=== PATIENT | male | born 1980 | race Caucasian/White ===

== ENCOUNTER 2020-02-03 07:21 | Inpatient (IN) | payer BC ==
--- NOTE | 2020-02-03 07:48 | EDM.PDOC ---
ED HPI GENERAL MEDICAL PROBLEM - General Chief Complaint: Lower Extremity Injury/Pain Stated Complaint: RT. LEG HURTS Time Seen by Provider: 02/03/20 07:22 Source of Information: Reports: Patient History Limitations: Reports: No Limitations - History of Present Illness INITIAL COMMENTS - FREE TEXT/NARRATIVE: PMHx HTN, DM2 presents for concern for RLE infection. Was told he had an infected foot 20 days ago and started on keflex. He's finished the keflex but has noted for last 10 days worsening swelling/pain in R ankle tracking up from the foot. No warmth/redness. No calf pain. No SOB/CP. No fevers. No N/V. Onset: Today Right Lower Leg Pain Score (Numeric/FACES): 10 - Related Data Allergies Allergy/AdvReac Type Severity Reaction Status Date / Time No Known Allergies Allergy Verified 02/03/20 07:43 Home Meds: Home Meds glipiZIDE [Glucotrol XL] 2.5 mg PO DAILY 02/03/20 [History] lisinopriL [Lisinopril] 5 mg PO ASDIRECTED 02/03/20 [History] metFORMIN [Glucophage XR] 500 mg PO BIDMEALS 02/03/20 [History] Review of Systems - Review of Systems Review Of Systems: Comprehensive ROS is negative, except as noted in HPI. ED EXAM, GENERAL - Physical Exam Exam: See Below Exam Limited By: No Limitations General Appearance: Alert, WD/WN, No Apparent Distress Head: Atraumatic, Normocephalic Neck: Normal Inspection Respiratory/Chest: No Respiratory Distress, Lungs Clear, Normal Breath Sounds, No Accessory Muscle Use Cardiovascular: Normal Peripheral Pulses, Regular Rate, Rhythm, No Edema Peripheral Pulses: 1+: Dorsalis Pedis (L), Dorsalis Pedis (R) Extremities: Other (swelling of R ankle with TTP, no redness/warmth, swollen R great toe w/ erythema, healing wound R great toe, negative Willie's R sided, ch ronic venous stasis changes) Neurological: Alert, Oriented Psychiatric: Normal Affect, Normal Mood Skin Exam: Warm, Dry, Intact Course - Vital Signs Last Recorded V/S: Last Vital Signs Temp 96.7 F L 02/03/20 07:39 Pulse 76 02/03/20 07:39 Resp 18 02/03/20 07:39 BP 130/94 H 02/03/20 07:39 Pulse Ox 93 L 02/03/20 07:39 - Orders/Labs/Meds Orders: Active Orders 24 hr Category Date Time Status Patient Status [ADT] Routine ADT 02/03/20 08:56 Ordered Ankle 2V Rt [CR] Stat Exams 02/03/20 08:56 Ordered CULTURE BLOOD [BC] Stat Lab 02/03/20 07:59 Received CULTURE BLOOD [BC] Stat Lab 02/03/20 08:20 Received Blood Culture x2 Reflex Set [OM.PC] Stat Oth 02/03/20 07:49 Ordered Labs: Laboratory Tests 02/03/20 02/03/20 02/03/20 Range/Units 07:59 07:59 07:59 WBC 10.33 (4.0-11.0) K/uL RBC 5.17 (4.50-5.90) M/uL Hgb 13.4 (13.0-17.0) g/dL Hct 42.5 (38.0-50.0) % MCV 82.2 (80.0-98.0) fL MCH 25.9 L (27.0-32.0) pg MCHC 31.5 (31.0-37.0) g/dL RDW Std Deviation 45.3 (28.0-62.0) fl RDW Coeff of Shoaib 15 (11.0-15.0) % Plt Count 233 (150-400) K/uL MPV 10.40 (7.40-12.00) fL Neut % (Auto) 63.6 (48.0-80.0) % Lymph % (Auto) 24.6 (16.0-40.0) % [place] % (Auto) 8.6 (0.0-15.0) % Eos % (Auto) 2.9 (0.0-7.0) % Baso % (Auto) 0.3 (0.0-1.5) % Neut # (Auto) 6.6 H (1.4-5.7) K/uL Lymph # (Auto) 2.5 H (0.6-2.4) K/uL [place] # (Auto) 0.9 H (0.0-0.8) K/uL Eos # (Auto) 0.3 (0.0-0.7) K/uL Baso # (Auto) 0.0 (0.0-0.1) K/uL ESR 4 (0-14) mm/hr Sodium 136 (136-148) mmol/L Potassium 4.6 (3.5-5.1) mmol/L Chloride 100 (98-107) mmol/L Carbon Dioxide 27.6 (21.0-32.0) mmol/L BUN 16 (7.0-18.0) mg/dL Creatinine 0.9 (0.8-1.3) mg/dL Est Cr Clr Drug Dosing 97.47 mL/min Estimated GFR (MDRD) > 60.0 ml/min Glucose 138 H (74-106) mg/dL Calcium 9.0 (8.5-10.1) mg/dL C-Reactive Protein 7.60 H (0.00-0.90) mg/dL Meds: Medications Discontinued Medications Generic Name Dose Route Start Last Admin Trade Name Freq PRN Reason Stop Dose Admin Clindamycin Phosphate 600 mg/ 54 mls @ 100 mls/hr 02/03/20 07:42 02/03/20 07:58 Sodium Chloride IV 02/03/20 08:14 Not Given ONETIME ONE Clindamycin Phosphate Confirm 02/03/20 07:52 02/03/20 07:59 Cleocin In D5w Administered 02/03/20 07:53 Not Given Dose 50 mls @ as directed .ROUTE .STK-MED ONE Clindamycin Phosphate 600 mg/ 50 mls @ 100 mls/hr 02/03/20 07:59 02/03/20 08:02 Premix IV 02/03/20 08:28 100 mls/hr ONETIME ONE Administration Oxycodone/Acetaminophen 1 tab 02/03/20 08:51 Percocet 325-10 Mg PO 02/03/20 08:52 ONETIME ONE - Re-Assessments/Exams Free Text/Narrative Re-Assessment/Exam: 02/03/20 07:47 Will get basic labs, will give 1x dose IV clindamycin 600mg, will employ shared decision making for admit vs d/c with different antibiotic and PMD f/u as patient is without signs or symptoms of systemic toxicity. Low suspicion DVT. Very low suspicion necrotizing fascitis in setting of reassuring history and benign physical exam. Free Text/Narrative Re-Assessment/Exam: 02/03/20 08:57 Labs w/ WBC 10, elevated CRP. Blood cultures drawn. Will admit for failed outpatient cellulitis. Dr. Cox agrees to admit to his service. XR ordered to r/o soft tissue gas, low suspicion necrotizing fascitis. Departure - Departure Time of Disposition: 08:58 Disposition: Admitted As Inpatient 64 Condition: Good Clinical Impression: Cellulitis and abscess of foot - Discharge Information Referrals: PCP,None [Primary Care Provider] - Forms: ED Department Discharge Sepsis Event Note (ED) - Evaluation Sepsis Screening Result: No Definite Risk - Focused Exam Vital Signs: Vital Signs Temp Pulse Resp BP Pulse Ox 02/03/20 07:39 96.7 F L 76 18 130/94 H 93 L - My Orders Last 24 Hours: My Active Orders 02/03/20 07:49 Blood Culture x2 Reflex Set [OM.PC] Stat 02/03/20 07:59 CULTURE BLOOD [BC] Stat 02/03/20 08:20 CULTURE BLOOD [BC] Stat 02/03/20 08:56 Patient Status [ADT] Routine Ankle 2V Rt [CR] Stat - Assessment/Plan Last 24 Hours: My Active Orders 02/03/20 07:49 Blood Culture x2 Reflex Set [OM.PC] Stat 02/03/20 07:59 CULTURE BLOOD [BC] Stat 02/03/20 08:20 CULTURE BLOOD [BC] Stat 02/03/20 08:56 Patient Status [ADT] Routine Ankle 2V Rt [CR] Stat
[2020-02-03] MEDS ORDERED: Clindamycin Phosphate in D5W 50 ML ONE (07:52)
[2020-02-03] MEDS ORDERED: Clindamycin Phosphate in D5W 600 MG in Premix Bag 1 BAG IV ONE ×2 (07:59)
[2020-02-03 08:34] LABS: BLOOD UREA NITROGEN,BUN 16 mg/dL (7.0-18.0); CARBON DIOXIDE,CO2 27.6 mmol/L (21.0-32.0); CHLORIDE,CL 100 mmol/L (98-107); GLUCOSE RANDOM 138 mg/dL (74-106); POTASSIUM,K 4.6 mmol/L (3.5-5.1); SODIUM,NA 136 mmol/L (136-148)
[2020-02-03] MEDS ORDERED: Acetaminophen/oxyCODONE 325-10 MG Tab PO ONE (08:51)
--- NOTE | 2020-02-03 09:29 | CR ---
Right ankle: 2 views of the right ankle were obtained. Comparison: No previous right ankle study. Dystrophic calcifications scattered within the soft tissues which are likely chronic. Mild soft tissue swelling is seen. Bony structures appear within normal limits. No focal erosions or acute abnormality is seen. Impression: 1. Dystrophic calcifications within the soft tissues which are likely chronic. 2. Soft tissue swelling 3. Nothing acute bony abnormality is identified. Diagnostic code #2 This report was dictated in MDT
--- NOTE | 2020-02-03 13:00 | PCM.HP.2 ---
H&P History of Present Illness - General Date of Service: 02/03/20 Admit Problem/Dx: Admission Diagnosis/Problem Admission Diagnosis/Problem Cellulitis History Limitations: Reports: No Limitations - History of Present Illness Initial Comments - Free Text/Narative: 39 yr old male admitted for cellulitis of the right lower leg. 10 days ago patient noticed redness and tenderness at the right lower leg which has increased in size and pain since. Patient denies any trauma to his leg, denies insect bite but does state that he developed a right great toe infection 20 days prior and has been taking prescribed Keflex. Patient had the same cellulitis infection 7 years ago on his left lower leg which required hospital admission for IV antibiotics. Patient has a PMH of diabetes and hypertension. Right Lower Leg Pain Score (Numeric/FACES): 2 - Related Data Allergies/Adverse Reactions: Allergies Allergy/AdvReac Type Severity Reaction Status Date / Time No Known Allergies Allergy Verified 02/03/20 11:00 Home Medications: Home Meds Empagliflozin [Jardiance] 10 mg PO DAILY 02/03/20 [History] glipiZIDE [Glucotrol XL] 5 mg PO BID 02/03/20 [History] lisinopriL [Lisinopril] 20 mg PO BEDTIME 02/03/20 [History] metFORMIN [Glucophage XR] 1,000 mg PO BID 02/03/20 [History] Past Medical History HEENT History: Reports: None Cardiovascular History: Reports: Hypertension Respiratory History: Reports: None Gastrointestinal History: Reports: None Genitourinary History: Reports: None Musculoskeletal History: Reports: None Neurological History: Reports: None Psychiatric History: Reports: None Endocrine/Metabolic History: Reports: Diabetes, Type II Do You Have Enough Pump Supplies for Your Hospital Stay: No Do You Give Correction Boluses or Sliding Scale: No Hematologic History: Reports: None Immunologic History: Reports: None Oncologic (Cancer) History: Reports: None Dermatologic History: Reports: None - Infectious Disease History Infectious Disease History: Reports: None - Past Surgical History Head Surgeries/Procedures: Reports: None Social & Family History - Tobacco Use Smoking Status *Q: Never Smoker Second Hand Smoke Exposure: No - Caffeine Use Caffeine Use: Reports: Coffee - Recreational Drug Use Recreational Drug Use: No H&P Review of Systems - Review of Systems: Review Of Systems: See Below General: Denies: Fever, Weakness, Night Sweats HEENT: Denies: Headaches Pulmonary: Denies: Shortness of Breath, Wheezing, Pleuritic Chest Pain, Cough Cardiovascular: Denies: Chest Pain, Palpitations, Dyspnea on Exertion Gastrointestinal: Denies: Abdominal Pain, Diarrhea Skin: Reports: Rash, Erythema Neurological: Denies: Confusion, Dizziness, Headache Exam - Exam Exam: See Below - Vital Signs Vital Signs: Last Vital Signs Temp 95.7 F L 02/03/20 11:02 Pulse 57 L 02/03/20 11:02 Resp 18 02/03/20 11:02 BP 118/51 L 02/03/20 11:02 Pulse Ox 94 L 02/03/20 11:02 Weight: 307 lb 3.2 oz - Exam General: Alert, Oriented, Cooperative HEENT: EOMI Lungs: Clear to Auscultation, Normal Respiratory Effort Cardiovascular: Regular Rate, Regular Rhythm GI/Abdominal Exam: Soft, Non-Tender, No Distention Extremities: Normal Range of Motion, Leg Pain (right lower leg), Increased Warmth (right lower leg). No: Normal Inspection, Joint Swelling Skin: Other (cellulitis, right lower leg) Neuro Extensive - Mental Status: Alert, Oriented x3 - Patient Data Lab Results Last 24 hrs: Laboratory Results - last 24 hr 02/03/20 02/03/20 02/03/20 Range/Units 07:59 07:59 07:59 WBC 10.33 (4.0-11.0) K/uL RBC 5.17 (4.50-5.90) M/uL Hgb 13.4 (13.0-17.0) g/dL Hct 42.5 (38.0-50.0) % MCV 82.2 (80.0-98.0) fL MCH 25.9 L (27.0-32.0) pg MCHC 31.5 (31.0-37.0) g/dL RDW Std Deviation 45.3 (28.0-62.0) fl RDW Coeff of Shoaib 15 (11.0-15.0) % Plt Count 233 (150-400) K/uL MPV 10.40 (7.40-12.00) fL Neut % (Auto) 63.6 (48.0-80.0) % Lymph % (Auto) 24.6 (16.0-40.0) % [place] % (Auto) 8.6 (0.0-15.0) % Eos % (Auto) 2.9 (0.0-7.0) % Baso % (Auto) 0.3 (0.0-1.5) % Neut # (Auto) 6.6 H (1.4-5.7) K/uL Lymph # (Auto) 2.5 H (0.6-2.4) K/uL [place] # (Auto) 0.9 H (0.0-0.8) K/uL Eos # (Auto) 0.3 (0.0-0.7) K/uL Baso # (Auto) 0.0 (0.0-0.1) K/uL ESR 4 (0-14) mm/hr Sodium 136 (136-148) mmol/L Potassium 4.6 (3.5-5.1) mmol/L Chloride 100 (98-107) mmol/L Carbon Dioxide 27.6 (21.0-32.0) mmol/L BUN 16 (7.0-18.0) mg/dL Creatinine 0.9 (0.8-1.3) mg/dL Est Cr Clr Drug Dosing 97.47 mL/min Estimated GFR (MDRD) > 60.0 ml/min Glucose 138 H (74-106) mg/dL Calcium 9.0 (8.5-10.1) mg/dL C-Reactive Protein 7.60 H (0.00-0.90) mg/dL SARS Virus RNA (PCR) (NEGATIVE) 02/03/20 Range/Units 08:58 WBC (4.0-11.0) K/uL RBC (4.50-5.90) M/uL Hgb (13.0-17.0) g/dL Hct (38.0-50.0) % MCV (80.0-98.0) fL MCH (27.0-32.0) pg MCHC (31.0-37.0) g/dL RDW Std Deviation (28.0-62.0) fl RDW Coeff of Shoaib (11.0-15.0) % Plt Count (150-400) K/uL MPV (7.40-12.00) fL Neut % (Auto) (48.0-80.0) % Lymph % (Auto) (16.0-40.0) % [place] % (Auto) (0.0-15.0) % Eos % (Auto) (0.0-7.0) % Baso % (Auto) (0.0-1.5) % Neut # (Auto) (1.4-5.7) K/uL Lymph # (Auto) (0.6-2.4) K/uL [place] # (Auto) (0.0-0.8) K/uL Eos # (Auto) (0.0-0.7) K/uL Baso # (Auto) (0.0-0.1) K/uL ESR (0-14) mm/hr Sodium (136-148) mmol/L Potassium (3.5-5.1) mmol/L Chloride (98-107) mmol/L Carbon Dioxide (21.0-32.0) mmol/L BUN (7.0-18.0) mg/dL Creatinine (0.8-1.3) mg/dL Est Cr Clr Drug Dosing mL/min Estimated GFR (MDRD) ml/min Glucose (74-106) mg/dL Calcium (8.5-10.1) mg/dL C-Reactive Protein (0.00-0.90) mg/dL SARS Virus RNA (PCR) NEGATIVE (NEGATIVE) Result Diagrams: 02/03/20 07:59 02/03/20 07:59 Sepsis Event Note - Evaluation Sepsis Screening Result: No Definite Risk - Focused Exam Vital Signs: Vital Signs Temp Pulse Resp BP Pulse Ox 02/03/20 11:02 95.7 F L 57 L 18 118/51 L 94 L 02/03/20 07:39 96.7 F L 76 18 130/94 H 93 L Problem List Initiated/Reviewed/Updated: Yes Orders Last 24hrs: Active Orders 24 hr Category Date Time Status Patient Status [ADT] Routine ADT 02/03/20 08:56 Active Oxygen Therapy [RC] PRN Care 02/03/20 12:55 Ordered Oxygen Therapy [RC] PRN Care 02/03/20 12:55 Ordered VTE/DVT Education [RC] PER UNIT ROUTINE Care 02/03/20 12:55 Ordered VTE/DVT Education [RC] PER UNIT ROUTINE Care 02/03/20 12:55 Ordered Vital Signs [RC] Q4H Care 02/03/20 12:55 Ordered Vital Signs [RC] Q4H Care 02/03/20 12:55 Ordered [employer] Diet [DIET] Diet 02/03/20 Lunch Ordered CULTURE BLOOD [BC] Stat Lab 02/03/20 07:59 Received CULTURE BLOOD [BC] Stat Lab 02/03/20 08:20 Received Acetaminophen [TylenoL] Med 02/03/20 12:55 Ordered 650 mg PO Q4H PRN Enoxaparin [Lovenox] Med 02/03/20 13:00 Ordered 40 mg SUBCUT Q24H Pharmacy to Dose - Vancomycin Med 02/03/20 12:45 Ordered 1 dose .XX ASDIRECTED Blood Culture x2 Reflex Set [OM.PC] Stat Oth 02/03/20 07:49 Ordered Resuscitation Status Routine Resus Stat 02/03/20 12:55 Ordered Medication Orders Acetaminophen (Tylenol) 650 mg PO Q4H PRN PRN Reason: Pain (Mild 1-3)/fever Enoxaparin Sodium (Lovenox) 40 mg SUBCUT Q24H [facility] Vancomycin HCl (Pharmacy To Dose - Vancomycin) 1 dose .XX ASDIRECTED [facility] Assessment/Plan: Cellulitis- Vancomycin Q8HR. Will consider addition of another antibiotic if patients cellulitis is not resolving with vancomycin. Diabetes Type 2- Insulin Sliding Scale. Recheck HbA1c HTN- Lisinopril PO daily
[2020-02-03] MEDS ORDERED: Vancomycin 2 GM in Sodium Chloride 0.9% 500 ML IV SCH (13:45)
[2020-02-03] MEDS: Enoxaparin 40 MG/0.4 ML Syringe SUBCUT SCH (14:28)
[2020-02-03 14:37] LABS: HEMOGLOBIN A1C 9.3 % (4.5-6.2)
[2020-02-03] MEDS: Insulin Aspart 100 Units/ML 3 ML Pen SUBCUT SCH (16:56)
[2020-02-03] MEDS: Acetaminophen 325 MG Tab PO PRN (19:53)
[2020-02-03] MEDS: Lisinopril 10 MG Tab PO SCH (20:31)
[2020-02-04 06:29] LABS: BLOOD UREA NITROGEN,BUN 13 mg/dL (7.0-18.0); CARBON DIOXIDE,CO2 27.2 mmol/L (21.0-32.0); CHLORIDE,CL 101 mmol/L (98-107); GLUCOSE RANDOM 83 mg/dL (74-106); POTASSIUM,K 4.1 mmol/L (3.5-5.1); SODIUM,NA 139 mmol/L (136-148)
[2020-02-04] MEDS: Insulin Aspart 100 Units/ML 3 ML Pen SUBCUT SCH ×3 (08:48→16:51)
[2020-02-04] MEDS: Acetaminophen 325 MG Tab PO PRN (09:09)
--- NOTE | 2020-02-04 12:19 | PCM.PN ---
- General Info Date of Service: 02/04/20 Admission Dx/Problem (Free Text): Admission Diagnosis/Problem Admission Diagnosis/Problem Cellulitis Subjective Update: Doing better, No fevers overnight. No chest pain or SOB. Leg is painful, but improving. Redness improved Functional Status: Reports: Pain Controlled, Tolerating Diet, Ambulating, Urinating - Review of Systems General: Reports: No Symptoms. Denies: Fatigue, Malaise Pulmonary: Reports: No Symptoms. Denies: Shortness of Breath Cardiovascular: Reports: No Symptoms. Denies: Chest Pain Gastrointestinal: Reports: No Symptoms. Denies: Abdominal Pain, Nausea, Vomiting Genitourinary: Reports: No Symptoms Skin: Reports: Other (redness and pain improving) Neurological: Reports: No Symptoms Psychiatric: Reports: No Symptoms - Patient Data Vitals - Most Recent: Last Vital Signs Temp 97.6 F 02/04/20 07:40 Pulse 66 02/04/20 07:40 Resp 18 02/04/20 07:40 BP 102/51 L 02/04/20 07:40 Pulse Ox 92 L 02/04/20 07:40 Weight - Most Recent: 139.344 kg I&O - Last 24 Hours: Intake & Output 02/03/20 02/04/20 02/04/20 22:59 06:59 14:59 Intake Total 750 1850 Balance 750 1850 Lab Results Last 24 Hours: Laboratory Results - last 24 hr 02/03/20 02/03/20 02/04/20 Range/Units 07:59 16:36 05:15 WBC 8.86 (4.0-11.0) K/uL RBC 4.93 (4.50-5.90) M/uL Hgb 12.7 L (13.0-17.0) g/dL Hct 40.5 (38.0-50.0) % MCV 82.2 (80.0-98.0) fL MCH 25.8 L (27.0-32.0) pg MCHC 31.4 (31.0-37.0) g/dL RDW Std Deviation 44.4 (28.0-62.0) fl RDW Coeff of Shoaib 15 (11.0-15.0) % Plt Count 233 (150-400) K/uL MPV 10.40 (7.40-12.00) fL Neut % (Auto) 59.1 (48.0-80.0) % Lymph % (Auto) 26.5 (16.0-40.0) % [place] % (Auto) 10.5 (0.0-15.0) % Eos % (Auto) 3.6 (0.0-7.0) % Baso % (Auto) 0.3 (0.0-1.5) % Neut # (Auto) 5.2 (1.4-5.7) K/uL Lymph # (Auto) 2.4 (0.6-2.4) K/uL [place] # (Auto) 0.9 H (0.0-0.8) K/uL Eos # (Auto) 0.3 (0.0-0.7) K/uL Baso # (Auto) 0.0 (0.0-0.1) K/uL Sodium (136-148) mmol/L Potassium (3.5-5.1) mmol/L Chloride (98-107) mmol/L Carbon Dioxide (21.0-32.0) mmol/L BUN (7.0-18.0) mg/dL Creatinine (0.8-1.3) mg/dL Est Cr Clr Drug Dosing mL/min Estimated GFR (MDRD) ml/min Glucose (74-106) mg/dL POC Glucose 118 H (60-110) mg/dL Hemoglobin A1c 9.3 H (4.5-6.2) % Calcium (8.5-10.1) mg/dL 02/04/20 02/04/20 02/04/20 Range/Units 05:15 06:52 11:03 WBC (4.0-11.0) K/uL RBC (4.50-5.90) M/uL Hgb (13.0-17.0) g/dL Hct (38.0-50.0) % MCV (80.0-98.0) fL MCH (27.0-32.0) pg MCHC (31.0-37.0) g/dL RDW Std Deviation (28.0-62.0) fl RDW Coeff of Shoaib (11.0-15.0) % Plt Count (150-400) K/uL MPV (7.40-12.00) fL Neut % (Auto) (48.0-80.0) % Lymph % (Auto) (16.0-40.0) % [place] % (Auto) (0.0-15.0) % Eos % (Auto) (0.0-7.0) % Baso % (Auto) (0.0-1.5) % Neut # (Auto) (1.4-5.7) K/uL Lymph # (Auto) (0.6-2.4) K/uL [place] # (Auto) (0.0-0.8) K/uL Eos # (Auto) (0.0-0.7) K/uL Baso # (Auto) (0.0-0.1) K/uL Sodium 139 (136-148) mmol/L Potassium 4.1 (3.5-5.1) mmol/L Chloride 101 (98-107) mmol/L Carbon Dioxide 27.2 (21.0-32.0) mmol/L BUN 13 (7.0-18.0) mg/dL Creatinine 0.8 (0.8-1.3) mg/dL Est Cr Clr Drug Dosing 113.61 mL/min Estimated GFR (MDRD) > 60.0 ml/min Glucose 83 (74-106) mg/dL POC Glucose 93 146 H (60-110) mg/dL Hemoglobin A1c (4.5-6.2) % Calcium 9.0 (8.5-10.1) mg/dL Tushar Results Last 24 Hours: Microbiology 02/03/20 08:20 Aerobic Blood Culture - Preliminary Blood - Venous - Lab Draw NO GROWTH AFTER 1 DAY Anaerobic Blood Culture - Preliminary NO GROWTH AFTER 1 DAY 02/03/20 07:59 Aerobic Blood Culture - Preliminary Blood - Venous NO GROWTH AFTER 1 DAY Anaerobic Blood Culture - Preliminary NO GROWTH AFTER 1 DAY Med Orders - Current: Current Medications Acetaminophen (Tylenol) 650 mg PO Q4H PRN PRN Reason: Pain (Mild 1-3)/fever Last Admin: 02/04/20 09:09 Dose: 650 mg Documented by: Enoxaparin Sodium (Lovenox) 40 mg SUBCUT Q24H [facility] Last Admin: 02/03/20 14:28 Dose: 40 mg Documented by: Vancomycin HCl 1.5 gm/ Premix 300 mls @ 150 mls/hr IV Q8H [facility] Last Admin: 02/04/20 04:38 Dose: 150 mls/hr Documented by: Insulin Aspart (Novolog) 0 unit SUBCUT TIDAC [facility]; Protocol Last Admin: 02/04/20 11:04 Dose: Not Given Documented by: Lisinopril (Prinivil) 20 mg PO BEDTIME [facility] Last Admin: 02/03/20 20:31 Dose: Not Given Documented by: Vancomycin HCl (Pharmacy To Dose - Vancomycin) 1 dose .XX ASDIRECTED [facility] Discontinued Medications Clindamycin Phosphate 600 mg/ (Sodium Chloride) 54 mls @ 100 mls/hr IV ONETIME ONE Stop: 02/03/20 08:14 Last Admin: 02/03/20 07:58 Dose: Not Given Documented by: Clindamycin Phosphate (Cleocin In D5w) Confirm Administered Dose 50 mls @ as directed .ROUTE .STK-MED ONE Stop: 02/03/20 07:53 Last Admin: 02/03/20 07:59 Dose: Not Given Documented by: Clindamycin Phosphate 600 mg/ (Premix) 50 mls @ 100 mls/hr IV ONETIME ONE Stop: 02/03/20 08:28 Last Admin: 02/03/20 08:02 Dose: 100 mls/hr Documented by: Oxycodone/Acetaminophen (Percocet 325-10 Mg) 1 tab PO ONETIME ONE Stop: 02/03/20 08:52 Last Admin: 02/03/20 08:59 Dose: 1 tab Documented by: - Exam General: Alert, Oriented, Cooperative, No Acute Distress Lungs: Clear to Auscultation, Normal Respiratory Effort Cardiovascular: Regular Rate, Regular Rhythm GI/Abdominal Exam: Normal Bowel Sounds, Soft, Non-Tender, Other (obese abdomen) Extremities: Normal Inspection, Normal Range of Motion, Non-Tender, No Pedal Edema Wound/Incisions: Erythema Improving, Other (bilateral venous stasis dermatitis) Neurological: No New Focal Deficit Psy/Mental Status: Alert, Normal Affect, Normal Mood Sepsis Event Note - Evaluation Sepsis Screening Result: No Definite Risk - Focused Exam Vital Signs: Vital Signs Temp Pulse Resp BP Pulse Ox 02/04/20 07:40 97.6 F 66 18 102/51 L 92 L 02/04/20 04:00 97.7 F 57 L 18 122/57 L 95 - Problem List & Annotations (1) Cellulitis SNOMED Code(s): 261563076 Code(s): L03.90 - CELLULITIS, UNSPECIFIED Status: Acute Current Visit: Yes Qualifiers: Site of cellulitis: extremity Site of cellulitis of extremity: lower extremity Laterality: right Qualified Code(s): L03.115 - Cellulitis of right lower limb (2) DM type 2 (diabetes mellitus, type 2) SNOMED Code(s): 62579116 Code(s): E11.9 - TYPE 2 DIABETES MELLITUS WITHOUT COMPLICATIONS Status: Chronic Current Visit: Yes Qualifiers: Diabetes mellitus long-term insulin use: without long-term use Diabetes mellitus complication status: with hyperglycemia Qualified Code(s): E11.65 - Type 2 diabetes mellitus with hyperglycemia (3) Obesity SNOMED Code(s): 985513679, 855407173 Code(s): E66.9 - OBESITY, UNSPECIFIED Status: Chronic Current Visit: Yes - Problem List Review Problem List Initiated/Reviewed/Updated: Yes - My Orders Last 24 Hours: My Active Orders 02/04/20 10:18 Consult to Packaging Tech [Consult to Diabetic Nurse Specialist] [CONS] Routine - Plan Plan:: This 39 year old male admitted with cellulitis to RLE 1. Cellulitis to RLE - Improvement today - Continue Vancomycin - Elevate leg - BC negative x 1 day - Callus to R great toe, counseled on good foot care 2. DM Type 2 - Uncontrolled - A1c 9.3 - DM Educator to discuss insulin use, for now daily injection - Counseled on diet and exercise. VTE prophylaxis: Lovenox Dispo: 1-2 days pending improvement
[2020-02-04] MEDS: Enoxaparin 40 MG/0.4 ML Syringe SUBCUT SCH (13:05)
[2020-02-04] MEDS: Lisinopril 10 MG Tab PO SCH (21:07)
[2020-02-05] MEDS: Acetaminophen 325 MG Tab PO PRN (01:20)
[2020-02-05 05:54] LABS: BLOOD UREA NITROGEN,BUN 13 mg/dL (7.0-18.0); CARBON DIOXIDE,CO2 27.1 mmol/L (21.0-32.0); CHLORIDE,CL 102 mmol/L (98-107); GLUCOSE RANDOM 114 mg/dL (74-106); POTASSIUM,K 4.3 mmol/L (3.5-5.1); SODIUM,NA 139 mmol/L (136-148)
[2020-02-05] MEDS: Insulin Aspart 100 Units/ML 3 ML Pen SUBCUT SCH ×2 (07:47→11:40)
--- NOTE | 2020-02-05 10:11 | PCM.DCSUM1 ---
Discharge Summary - Hospital Course Brief History: 39 yr old male admitted for cellulitis of the right lower leg. 10 days ago patient noticed redness and tenderness at the right lower leg which has increased in size and pain since. Patient denies any trauma to his leg, denies insect bite but does state that he developed a right great toe infection 20 days prior and has been taking prescribed Keflex. Patient had the same cellulitis infection 7 years ago on his left lower leg which required hospital admission for IV antibiotics. Patient has a PMH of diabetes and hypertension Diagnosis: Stroke: No - Discharge Data Discharge Date: 02/05/20 Discharge Disposition: Home, Self-Care 01 Condition: Stable - Referral to Home Health Primary Care Physician: PCP None - Discharge Diagnosis/Problem(s) (1) Cellulitis SNOMED Code(s): 409207907 ICD Code: L03.90 - CELLULITIS, UNSPECIFIED Status: Acute Current Visit: Yes Qualifiers: Site of cellulitis: extremity Site of cellulitis of extremity: lower extremity Laterality: right Qualified Code(s): L03.115 - Cellulitis of right lower limb (2) DM type 2 (diabetes mellitus, type 2) SNOMED Code(s): 22564347 ICD Code: E11.9 - TYPE 2 DIABETES MELLITUS WITHOUT COMPLICATIONS Status: Chronic Current Visit: Yes Qualifiers: Diabetes mellitus long term acute care registered nurse insulin use: without long term acute care registered nurse use Diabetes mellitus complication status: with hyperglycemia Qualified Code(s): E11.65 - Type 2 diabetes mellitus with hyperglycemia (3) Obesity SNOMED Code(s): 401386636, 199732753 ICD Code: E66.9 - OBESITY, UNSPECIFIED Status: Chronic Current Visit: Yes - Patient Summary/Data Consults: Consultations 02/04/20 10:18 Consult to Watershed Engineer [Consult to Diabetic Nurse Specialist] [CONS] Routine Hospital Course: Admitting Diagnoses: Cellulitis RLE Discharge Diagnoses: Cellulitis RLE other PMH: DM Type 2, uncontrolled Obesity Ehsan was admitted for RLE cellulitis, he was treated with 2 days Vancomycin IV, no leukocytosis noted. He was afebrile. Today he is feeling better edema and erythema nearly gone. Continues to ahve calous to R great toe, encouraged follow up with podiatry and good foot care and good fitting shoes. He was counseled on DM management with DM educator. He will be started on Tresiba 10 units nightly as A1c is not controlled, 9.3. He was given 1 pen to last him until he goes home to [place] and then he will follow up with PCP there for medications. He will continue Bactrim DS 1 tab BID for cellulitis, 7 more days. he is to return to the ED if concerns should arise. - Patient Instructions Diet: Diabetic Diet Activity: No Strenuous Activities Showering/Bathing: May Shower Notify Provider of: Fever, Increased Pain, Swelling and Redness, Drainage, Na usea and/or Vomiting - Discharge Plan *PRESCRIPTION DRUG MONITORING PROGRAM REVIEWED*: Not Applicable *COPY OF PRESCRIPTION DRUG MONITORING REPORT IN PATIENT ADILSON: Not Applicable Prescriptions/Med Rec: Sulfamethoxazole/Trimethoprim [Bactrim Ds Tablet] 1 each PO BID #14 tablet Insulin Degludec [Tresiba] 10 unit SQ BEDTIME #1 pen Home Medications: Home Meds Empagliflozin [Jardiance] 10 mg PO DAILY 02/03/20 [History] glipiZIDE [Glucotrol XL] 5 mg PO BID 02/03/20 [History] lisinopriL [Lisinopril] 20 mg PO BEDTIME 02/03/20 [History] metFORMIN [Glucophage XR] 1,000 mg PO BID 02/03/20 [History] Insulin Degludec [Tresiba] 10 unit SQ BEDTIME #1 pen 02/05/20 [Rx] Sulfamethoxazole/Trimethoprim [Bactrim Ds Tablet] 1 each PO BID #14 tablet 02/05/20 [Rx] Oxygen Therapy Mode: Room Air Patient Handouts: Diabetes Mellitus and Foot Care, Hypoglycemia, Cellulitis, Adult, Upam-ex-Ogra, Type 2 Diabetes Mellitus, Self Care, Adult, [id number], Insulin Degludec injection, Sulfamethoxazole; Trimethoprim, SMX-TMP tablets, Blood Glucose Monitoring, Adult Referrals: Mackenzie Oakley NP [Nurse Practitioner] - 02/18/20 11:00 am - Discharge Summary/Plan Comment DC Time >30 min.: No - Patient Data Vitals - Most Recent: Last Vital Signs Temp 97.5 F 02/05/20 07:00 Pulse 57 L 02/05/20 07:00 Resp 15 02/05/20 07:00 BP 114/63 02/05/20 07:00 Pulse Ox 93 L 02/05/20 07:00 Weight - Most Recent: 139.344 kg I&O - Last 24 hours: Intake & Output 02/04/20 02/05/20 02/05/20 22:59 06:59 14:59 Intake Total 1540 700 Balance 1540 700 Lab Results - Last 24 hrs: Laboratory Results - last 24 hr 02/04/20 02/04/20 02/04/20 Range/Units 11:03 13:00 16:43 WBC (4.0-11.0) K/uL RBC (4.50-5.90) M/uL Hgb (13.0-17.0) g/dL Hct (38.0-50.0) % MCV (80.0-98.0) fL MCH (27.0-32.0) pg MCHC (31.0-37.0) g/dL RDW Std Deviation (28.0-62.0) fl RDW Coeff of Shoaib (11.0-15.0) % Plt Count (150-400) K/uL MPV (7.40-12.00) fL Neut % (Auto) (48.0-80.0) % Lymph % (Auto) (16.0-40.0) % [place] % (Auto) (0.0-15.0) % Eos % (Auto) (0.0-7.0) % Baso % (Auto) (0.0-1.5) % Neut # (Auto) (1.4-5.7) K/uL Lymph # (Auto) (0.6-2.4) K/uL [place] # (Auto) (0.0-0.8) K/uL Eos # (Auto) (0.0-0.7) K/uL Baso # (Auto) (0.0-0.1) K/uL Nucleated RBC % /100WBC Nucleated RBCs # K/uL Sodium (136-148) mmol/L Potassium (3.5-5.1) mmol/L Chloride (98-107) mmol/L Carbon Dioxide (21.0-32.0) mmol/L BUN (7.0-18.0) mg/dL Creatinine (0.8-1.3) mg/dL Est Cr Clr Drug Dosing mL/min Estimated GFR (MDRD) ml/min Glucose (74-106) mg/dL POC Glucose 146 H 93 (60-110) mg/dL Calcium (8.5-10.1) mg/dL Vancomycin Trough 16.6 H (5.0-10.0) ug/mL 02/05/20 02/05/20 02/05/20 Range/Units 05:16 05:16 07:43 WBC 9.74 (4.0-11.0) K/uL RBC 5.12 (4.50-5.90) M/uL Hgb 13.3 (13.0-17.0) g/dL Hct 42.4 (38.0-50.0) % MCV 82.8 (80.0-98.0) fL MCH 26.0 L (27.0-32.0) pg MCHC 31.4 (31.0-37.0) g/dL RDW Std Deviation 45.3 (28.0-62.0) fl RDW Coeff of Shoaib 15 (11.0-15.0) % Plt Count 261 (150-400) K/uL MPV 10.20 (7.40-12.00) fL Neut % (Auto) 61.4 (48.0-80.0) % Lymph % (Auto) 26.8 (16.0-40.0) % [place] % (Auto) 8.2 (0.0-15.0) % Eos % (Auto) 3.3 (0.0-7.0) % Baso % (Auto) 0.3 (0.0-1.5) % Neut # (Auto) 6.0 H (1.4-5.7) K/uL Lymph # (Auto) 2.6 H (0.6-2.4) K/uL [place] # (Auto) 0.8 (0.0-0.8) K/uL Eos # (Auto) 0.3 (0.0-0.7) K/uL Baso # (Auto) 0.0 (0.0-0.1) K/uL Nucleated RBC % 0.0 /100WBC Nucleated RBCs # 0 K/uL Sodium 139 (136-148) mmol/L Potassium 4.3 (3.5-5.1) mmol/L Chloride 102 (98-107) mmol/L Carbon Dioxide 27.1 (21.0-32.0) mmol/L BUN 13 (7.0-18.0) mg/dL Creatinine 0.9 (0.8-1.3) mg/dL Est Cr Clr Drug Dosing 100.99 mL/min Estimated GFR (MDRD) > 60.0 ml/min Glucose 114 H (74-106) mg/dL POC Glucose 113 H (60-110) mg/dL Calcium 9.0 (8.5-10.1) mg/dL Vancomycin Trough (5.0-10.0) ug/mL MARILY Results - Last 24 hrs: Microbiology 02/03/20 08:20 Aerobic Blood Culture - Preliminary Blood - Venous - Lab Draw NO GROWTH AFTER 2 DAYS Anaerobic Blood Culture - Preliminary NO GROWTH AFTER 2 DAYS 02/03/20 07:59 Aerobic Blood Culture - Preliminary Blood - Venous NO GROWTH AFTER 2 DAYS Anaerobic Blood Culture - Preliminary NO GROWTH AFTER 2 DAYS Med Orders - Current: Current Medications Acetaminophen (Tylenol) 650 mg PO Q4H PRN PRN Reason: Pain (Mild 1-3)/fever Last Admin: 02/05/20 01:20 Dose: 650 mg Documented by: Enoxaparin Sodium (Lovenox) 40 mg SUBCUT Q24H [facility] Last Admin: 02/04/20 13:05 Dose: 40 mg Documented by: Vancomycin HCl 1.5 gm/ Premix 300 mls @ 150 mls/hr IV Q8H [facility] Last Admin: 02/05/20 05:40 Dose: 150 mls/hr Documented by: Insulin Aspart (Novolog) 0 unit SUBCUT TIDAC [facility]; Protocol Last Admin: 02/05/20 07:47 Dose: Not Given Documented by: Lisinopril (Prinivil) 20 mg PO BEDTIME [facility] Last Admin: 02/04/20 21:07 Dose: 20 mg Documented by: Vancomycin HCl (Pharmacy To Dose - Vancomycin) 1 dose .XX ASDIRECTED [facility] Discontinued Medications Clindamycin Phosphate 600 mg/ (Sodium Chloride) 54 mls @ 100 mls/hr IV ONETIME ONE Stop: 02/03/20 08:14 Last Admin: 02/03/20 07:58 Dose: Not Given Documented by: Clindamycin Phosphate (Cleocin In D5w) Confirm Administered Dose 50 mls @ as directed .ROUTE .STK-MED ONE Stop: 02/03/20 07:53 Last Admin: 02/03/20 07:59 Dose: Not Given Documented by: Clindamycin Phosphate 600 mg/ (Premix) 50 mls @ 100 mls/hr IV ONETIME ONE Stop: 02/03/20 08:28 Last Admin: 02/03/20 08:02 Dose: 100 mls/hr Documented by: Oxycodone/Acetaminophen (Percocet 325-10 Mg) 1 tab PO ONETIME ONE Stop: 02/03/20 08:52 Last Admin: 02/03/20 08:59 Dose: 1 tab Documented by:
== END 2020-02-05 12:15 | disposition home or self-care (01) | DRG 383 ==
LOC: MW.ED 07:21 → MW.MS 08:56
PROVIDERS: ADMIT Internal Medicine; ATTEND Internal Medicine
DX: L03.115 Cellulitis of right lower limb (principal); E11.65 Type 2 diabetes mellitus with hyperglycemia; I10 Essential (primary) hypertension; Z20.828 Contact with and (suspected) exposure to other viral communicable diseases; E66.9 Obesity, unspecified; L84 Corns and callosities; Z68.42 Body mass index [BMI] 45.0-49.9, adult; Z79.84 Long term (current) use of oral hypoglycemic drugs; Z79.899 Other long term (current) drug therapy
CPT/HCPCS: 36415; 73600-26-RT; 73600-RT; 80048; 80202; 82962; 83036; 85025; 85652; 86140; 87040; 96365; 99221; 99231; 99238; 99284-25; A9270-GY; J1650; J3370; J3490; U0002

== ENCOUNTER 2020-05-30 15:43 | Emergency (ER) | payer BC ==
[2020-05-30] MEDS ORDERED: Acetaminophen 500 MG Tab PO ONE (16:12)
[2020-05-30] MEDS ORDERED: Clindamycin HCl 150 MG Cap PO ONE (16:15)
--- NOTE | 2020-05-30 16:20 | EDM.PDOC ---
ED HPI GENERAL MEDICAL PROBLEM - General Chief Complaint: Lower Extremity Injury/Pain Stated Complaint: SWOLLEN RIGHT LEG/TOE NAIL INFECTION/FEVER Time Seen by Provider: 05/30/20 15:45 Source of Information: Reports: Patient History Limitations: Reports: No Limitations - History of Present Illness INITIAL COMMENTS - FREE TEXT/NARRATIVE: Is a 39-year-old male who presents today for extremity redness and warmth. Patient also has a swelling of his right big toe. Patient states the lower extremity swelling and redness started a few days ago. The area is not painful. Patient states he was cutting his toenail and since then has had some swelling of his toe. Patient denies any drainage from the toe. Patient denies any fever chills nausea vomiting or other complaints. bilateral lower leg Pain Score (Numeric/FACES): 6 - Related Data Allergies Allergy/AdvReac Type Severity Reaction Status Date / Time No Known Allergies Allergy Verified 05/30/20 16:58 Home Meds: Home Meds Empagliflozin [Jardiance] 10 mg PO DAILY 02/03/20 [History] glipiZIDE [Glucotrol XL] 5 mg PO BID 02/03/20 [History] lisinopriL [Lisinopril] 20 mg PO BEDTIME 02/03/20 [History] metFORMIN [Glucophage XR] 1,000 mg PO BID 02/03/20 [History] Insulin Degludec [Tresiba] 10 unit SQ BEDTIME #1 pen 02/05/20 [Rx] Sulfamethoxazole/Trimethoprim [Bactrim Ds Tablet] 1 each PO BID #14 tablet 02/05/20 [Rx] Clindamycin HCl 450 mg PO Q8HR 7 Days #63 capsule 05/30/20 [Rx] Past Medical History HEENT History: Reports: None Cardiovascular History: Reports: Hypertension Respiratory History: Reports: None Gastrointestinal History: Reports: None Genitourinary History: Reports: None Musculoskeletal History: Reports: None Neurological History: Reports: None Psychiatric History: Reports: None Endocrine/Metabolic History: Reports: Diabetes, Type II Hematologic History: Reports: None Immunologic History: Reports: None Oncologic (Cancer) History: Reports: None Dermatologic History: Reports: None - Infectious Disease History Infectious Disease History: Reports: None - Past Surgical History Head Surgeries/Procedures: Reports: None Social & Family History - Caffeine Use Caffeine Use: Reports: Coffee Review of Systems - Review of Systems Review Of Systems: See Below Constitutional: Reports: No Symptoms Eyes: Reports: No Symptoms Ears: Reports: No Symptoms Nose: Reports: No Symptoms Mouth/Throat: Reports: No Symptoms Respiratory: Reports: No Symptoms Cardiovascular: Reports: No Symptoms GI/Abdominal: Reports: No Symptoms Genitourinary: Reports: No Symptoms Musculoskeletal: Reports: No Symptoms Skin: Reports: Erythema Neurological: Reports: No Symptoms Psychiatric: Reports: No Symptoms ED EXAM, GENERAL - Physical Exam Exam: See Below Exam Limited By: No Limitations General Appearance: Alert, WD/WN Respiratory/Chest: No Respiratory Distress, Lungs Clear Cardiovascular: Regular Rate, Rhythm GI/Abdominal: Normal Bowel Sounds, Soft, Non-Tender Extremities: Normal Range of Motion Neurological: Alert, Oriented, CN II-XII Intact, Normal Cognition Skin Exam: Erythema, Increased Warmth Course - Vital Signs Last Recorded V/S: Last Vital Signs Temp 97.3 F 05/30/20 16:04 Pulse 80 05/30/20 16:04 Resp 20 05/30/20 16:04 BP 137/65 05/30/20 16:04 Pulse Ox 96 05/30/20 16:04 - Orders/Labs/Meds Labs: Laboratory Tests 05/30/20 05/30/20 05/30/20 Range/Units 16:12 16:50 16:50 WBC 15.23 H (4.0-11.0) K/uL RBC 5.81 (4.50-5.90) M/uL Hgb 15.0 (13.0-17.0) g/dL Hct 47.7 (38.0-50.0) % MCV 82.1 (80.0-98.0) fL MCH 25.8 L (27.0-32.0) pg MCHC 31.4 (31.0-37.0) g/dL RDW Std Deviation 47.5 (28.0-62.0) fl RDW Coeff of Shoaib 16 H (11.0-15.0) % Plt Count 231 (150-400) K/uL MPV 10.20 (7.40-12.00) fL Neut % (Auto) 75.7 (48.0-80.0) % Lymph % (Auto) 12.5 L (16.0-40.0) % [place] % (Auto) 8.4 (0.0-15.0) % Eos % (Auto) 3.2 (0.0-7.0) % Baso % (Auto) 0.2 (0.0-1.5) % Neut # (Auto) 11.5 H (1.4-5.7) K/uL Lymph # (Auto) 1.9 (0.6-2.4) K/uL [place] # (Auto) 1.3 H (0.0-0.8) K/uL Eos # (Auto) 0.5 (0.0-0.7) K/uL Baso # (Auto) 0.0 (0.0-0.1) K/uL Nucleated RBC % 0.0 /100WBC Nucleated RBCs # 0 K/uL ESR 1 (0-14) mm/hr Sodium (136-148) mmol/L Potassium (3.5-5.1) mmol/L Chloride (98-107) mmol/L Carbon Dioxide (21.0-32.0) mmol/L BUN (7.0-18.0) mg/dL Creatinine (0.8-1.3) mg/dL Est Cr Clr Drug Dosing mL/min Estimated GFR (MDRD) ml/min Glucose (74-106) mg/dL POC Glucose 124 H (60-110) mg/dL Calcium (8.5-10.1) mg/dL Creatine Kinase (26-308) U/L C-Reactive Protein (0.00-0.90) mg/dL 05/30/20 Range/Units 16:50 WBC (4.0-11.0) K/uL RBC (4.50-5.90) M/uL Hgb (13.0-17.0) g/dL Hct (38.0-50.0) % MCV (80.0-98.0) fL MCH (27.0-32.0) pg MCHC (31.0-37.0) g/dL RDW Std Deviation (28.0-62.0) fl RDW Coeff of Shoaib (11.0-15.0) % Plt Count (150-400) K/uL MPV (7.40-12.00) fL Neut % (Auto) (48.0-80.0) % Lymph % (Auto) (16.0-40.0) % [place] % (Auto) (0.0-15.0) % Eos % (Auto) (0.0-7.0) % Baso % (Auto) (0.0-1.5) % Neut # (Auto) (1.4-5.7) K/uL Lymph # (Auto) (0.6-2.4) K/uL [place] # (Auto) (0.0-0.8) K/uL Eos # (Auto) (0.0-0.7) K/uL Baso # (Auto) (0.0-0.1) K/uL Nucleated RBC % /100WBC Nucleated RBCs # K/uL ESR (0-14) mm/hr Sodium 139 (136-148) mmol/L Potassium 4.3 (3.5-5.1) mmol/L Chloride 100 (98-107) mmol/L Carbon Dioxide 28.7 (21.0-32.0) mmol/L BUN 20 H (7.0-18.0) mg/dL Creatinine 0.8 (0.8-1.3) mg/dL Est Cr Clr Drug Dosing 109.66 mL/min Estimated GFR (MDRD) > 60.0 ml/min Glucose 131 H (74-106) mg/dL POC Glucose (60-110) mg/dL Calcium 9.8 (8.5-10.1) mg/dL Creatine Kinase 120 (26-308) U/L C-Reactive Protein 12.30 H (0.00-0.90) mg/dL Meds: Medications Discontinued Medications Generic Name Dose Route Start Last Admin Trade Name Jd PRN Reason Stop Dose Admin Acetaminophen 1,000 mg 05/30/20 16:12 05/30/20 16:27 Tylenol Extra Strength PO 05/30/20 16:13 1,000 mg ONETIME ONE Administration Clindamycin HCl 450 mg 05/30/20 16:15 05/30/20 16:27 Cleocin PO 05/30/20 16:16 450 mg ONETIME ONE Administration - Re-Assessments/Exams Free Text/Narrative Re-Assessment/Exam: 05/30/20 17:37 Will be treated for cellulitis of the right lower extremity. Did not have any fluctuance of the paronychia line we will give antibiotics. Patient also told to do warm soaks. Patient will be discharged. Departure - Departure Time of Disposition: 17:37 Disposition: Still A Patient 30 Condition: Good Clinical Impression: Paronychia Cellulitis Qualifiers: Site of cellulitis: extremity Site of cellulitis of extremity: lower extremity Laterality: right Qualified Code(s): L03.115 - Cellulitis of right lower limb - Discharge Information *PRESCRIPTION DRUG MONITORING PROGRAM REVIEWED*: Not Applicable *COPY OF PRESCRIPTION DRUG MONITORING REPORT IN PATIENT ADILSON: Not Applicable Prescriptions: Clindamycin HCl 450 mg PO Q8HR 7 Days #63 capsule Instructions: Cellulitis, Adult Referrals: PCP,Not In Area [Primary Care Provider] - Forms: ED Department Discharge Additional Instructions: The following information is given to patients seen in the emergency department who are being discharged to home. This information is to outline your options for follow-up care. We provide all patients seen in our emergency department with a follow-up referral. The need for follow-up, as well as the timing and circumstances, are variable depending upon the specifics of your emergency department visit. If you don't have a primary care physician on staff, we will provide you with a referral. We always advise you to contact your personal physician following an emergency department visit to inform them of the circumstance of the visit and for follow-up with them and/or the need for any referrals to a consulting specialist. The emergency department will also refer you to a specialist when appropriate. This referral assures that you have the opportunity for follow-up care with a specialist. All of these measure are taken in an effort to provide you with optimal care, which includes your follow-up. Under all circumstances we always encourage you to contact your private physician who remains a resource for coordinating your care. When calling for follow-up care, please make the office aware that this follow-up is from your recent emergency room visit. If for any reason you are refused follow-up, please contact the [facility] Emergency Department at and asked to speak to the emergency department charge nurse. Please follow up with your primary care physician. If you do not have a primary care physician, see below: [facility] [address] [place] [id number] [address] Please follow-up with your primary care physician. If the redness starts to spread please return to the ED if you may need additional antibiotics.. He will continue to place it in warm soaks to try to relieve some of the drainage. If having more concerning complaints please return to the ED. Sepsis Event Note (ED) - Focused Exam Vital Signs: Vital Signs Temp Pulse Resp BP Pulse Ox 05/30/20 16:04 97.3 F 80 20 137/65 96 - Assessment/Plan Assessment:: Is a 39-year-old male presents today for right lower knee redness and swelling and also swelling to his right big toe. Seems to be cellulitis. Paronychia on the big toe does not have any fluctuance will likely just give p.o. antibiotics that we will use half treat cellulitis.
[2020-05-30 17:23] LABS: BLOOD UREA NITROGEN,BUN 20 mg/dL (7.0-18.0); CARBON DIOXIDE,CO2 28.7 mmol/L (21.0-32.0); CHLORIDE,CL 100 mmol/L (98-107); GLUCOSE RANDOM 131 mg/dL (74-106); POTASSIUM,K 4.3 mmol/L (3.5-5.1); SODIUM,NA 139 mmol/L (136-148)
== END 2020-05-30 18:14 | disposition home or self-care (01) ==
LOC: MW.ED 15:43
DX: L03.115 Cellulitis of right lower limb (principal); L03.031 Cellulitis of right toe; I10 Essential (primary) hypertension; E11.9 Type 2 diabetes mellitus without complications; Z79.4 Long term (current) use of insulin; Z79.899 Other long term (current) drug therapy
CPT/HCPCS: 36415; 80048; 82550; 82962; 85025; 85652; 86140; 99283; A9270; 99282

== ENCOUNTER 2020-07-12 20:54 | Emergency (ER) | payer BC ==
--- NOTE | 2020-07-12 21:28 | EDM.PDOC ---
ED HPI GENERAL MEDICAL PROBLEM - General Chief Complaint: Lower Extremity Injury/Pain Stated Complaint: RIGHT FOOT NAIL INFECTION Time Seen by Provider: 07/12/20 21:12 Source of Information: Reports: Patient History Limitations: Reports: No Limitations - History of Present Illness INITIAL COMMENTS - FREE TEXT/NARRATIVE: Presents with a complaint of right great toenail pain. The patient states that he previously had an infection in that toenail and that "the doctor cut into it". That healed up but over the last 4 days the patient states that the toenail has started to hurt again and is may be a little red. There has been no drainage and no swelling. Denies fever, chills, nausea, vomiting. He has a history of diabetes, obesity. [facility]. He states that he works in the [employer] on a 20-day on 20-day off stent. He will be leaving to go back to [place] in 27 days. A review of the record indicates the patient was seen in this emergency room on May 30, 2020 for a similar complaint. On that occasion he was diagnosed with paronychia of the right great toenail and cellulitis of the right lower extremity. Was treated with clindamycin. R great toe Pain Score (Numeric/FACES): 8 - Related Data Allergies Allergy/AdvReac Type Severity Reaction Status Date / Time No Known Allergies Allergy Verified 07/12/20 21:17 Home Meds: Home Meds Empagliflozin [Jardiance] 5 mg PO DAILY 02/03/20 [History] glipiZIDE [Glucotrol XL] 5 mg PO BID 02/03/20 [History] lisinopriL [Lisinopril] 20 mg PO BEDTIME 02/03/20 [History] metFORMIN [Glucophage XR] 1,000 mg PO BID 02/03/20 [History] Clindamycin HCl 1 cap PO TID #30 capsule 07/12/20 [Rx] Past Medical History HEENT History: Reports: None Cardiovascular History: Reports: Hypertension Respiratory History: Reports: None Gastrointestinal History: Reports: None Genitourinary History: Reports: None Musculoskeletal History: Reports: None Neurological History: Reports: None Psychiatric History: Reports: None Endocrine/Metabolic History: Reports: Diabetes, Type II Hematologic History: Reports: None Immunologic History: Reports: None Oncologic (Cancer) History: Reports: None Dermatologic History: Reports: None - Infectious Disease History Infectious Disease History: Reports: None - Past Surgical History Head Surgeries/Procedures: Reports: None Cardiovascular Surgical History: Reports: None Endocrine Surgical History: Reports: None Social & Family History - Family History Family Medical History: No Pertinent Family History - Caffeine Use Caffeine Use: Reports: Coffee - Recreational Drug Use Recreational Drug Use: No Review of Systems - Review of Systems Review Of Systems: Comprehensive ROS is negative, except as noted in HPI. ED EXAM, GENERAL - Physical Exam Exam: See Below Exam Limited By: No Limitations General Appearance: Alert, No Apparent Distress Ears: Normal External Exam Nose: Normal Inspection Throat/Mouth: Normal Inspection Head: Atraumatic, Normocephalic Neck: Normal Inspection Respiratory/Chest: No Respiratory Distress, Lungs Clear, Normal Breath Sounds Cardiovascular: Normal Peripheral Pulses, Regular Rate, Rhythm, No Edema GI/Abdominal: Soft, Non-Tender, No Distention Extremities: Normal Inspection Neurological: Alert, Oriented, Normal Cognition Psychiatric: Normal Affect, Normal Mood Skin Exam: Warm, Dry, Other (Right great toenail packed, surrounding skin without swelling, scant erythema, dry. Does appear that there had been drainage. Lateral shins brown consistent with ischemic dermatitis. Right garcía slightly erythematous. Pedal and posttibial pulses strong. Sensation intact bilateral.) Lymphatic: No Adenopathy Course - Vital Signs Last Recorded V/S: Last Vital Signs Temp 36.6 C 07/12/20 21:18 Pulse 85 07/12/20 21:18 Resp 16 07/12/20 21:18 BP 128/72 07/12/20 21:18 Pulse Ox 98 07/12/20 21:18 - Re-Assessments/Exams Free Text/Narrative Re-Assessment/Exam: 07/12/20 21:37 The patient states that clindamycin worked well for him the last time. He has been soaking his right foot at home. Departure - Departure Time of Disposition: 21:37 Disposition: Home, Self-Care 01 Condition: Good Clinical Impression: Paronychia Cellulitis Qualifiers: Site of cellulitis: extremity Site of cellulitis of extremity: lower extremity Laterality: right Qualified Code(s): L03.115 - Cellulitis of right lower limb - Discharge Information Referrals: PCP,None [Primary Care Provider] - Forms: ED Department Discharge Additional Instructions: The following information is given to patients seen in the emergency department who are being discharged to home. This information is to outline your options for follow-up care. We provide all patients seen in our emergency department with a follow-up referral. The need for follow-up, as well as the timing and circumstances, are variable depending upon the specifics of your emergency department visit. If you don't have a primary care physician on staff, we will provide you with a referral. We always advise you to contact your personal physician following an e mergency department visit to inform them of the circumstance of the visit and for follow-up with them and/or the need for any referrals to a consulting specialist. The emergency department will also refer you to a specialist when appropriate. This referral assures that you have the opportunity for follow-up care with a specialist. All of these measure are taken in an effort to provide you with op timal care, which includes your follow-up. Under all circumstances we always encourage you to contact your private physician who remains a resource for coordinating your care. When calling for follow-up care, please make the office aware that this follow-up is from your recent emergency room visit. If for any reason you are refused follow-up, please contact the [facility] Emergency Department at and asked to speak to the emergency department charge nurse. 1. Take your antibiotic 3 times daily. RX to [facility] open tomorrow 12- 5pm 2. Soak your right foot 1-2 times daily in warm soapy water or warm water with Epsom salts 3. Return promptly for advancing redness, swelling or drainage or if you run a fever or chills Sepsis Event Note (ED) - Evaluation Sepsis Screening Result: No Definite Risk - Focused Exam Vital Signs: Vital Signs Temp Pulse Resp BP Pulse Ox 07/12/20 21:18 36.6 C 85 16 128/72 98
[2020-07-12] MEDS ORDERED: Clindamycin HCl 150 MG Cap PO ONE (21:32)
== END 2020-07-12 21:47 | disposition home or self-care (01) ==
LOC: MW.ED 20:54
DX: L03.115 Cellulitis of right lower limb (principal); L03.031 Cellulitis of right toe; I10 Essential (primary) hypertension; E11.9 Type 2 diabetes mellitus without complications; Z79.84 Long term (current) use of oral hypoglycemic drugs; Z79.899 Other long term (current) drug therapy
CPT/HCPCS: 99283; A9270; 99282

== ENCOUNTER 2020-08-06 21:02 | Emergency (ER) | payer BC ==
--- NOTE | 2020-08-06 21:54 | EDM.PDOC ---
ED HPI GENERAL MEDICAL PROBLEM - General Chief Complaint: Lower Extremity Injury/Pain Stated Complaint: TOENAIL BLEEDING Time Seen by Provider: 08/06/20 21:40 Source of Information: Reports: Patient History Limitations: Reports: No Limitations - History of Present Illness INITIAL COMMENTS - FREE TEXT/NARRATIVE: HISTORY AND PHYSICAL: History of present illness: Patient is a 39-year-old male presenting to the ED for concerns of right toe pain x 2 days. Patient has been seen in the ED 2 times and has received Keflex, Bactrim, levofloxacin for a cellulitis in the right great toe. Patient states after taking antibiotics he has improvement of his symptoms but the infection returns awhile later. Patient presents today after following instructions performing Epsom salt baths. He denies any pain associated with his right toe swelling/redness. Patient has a medical history of morbid obesity and type 2 diabetes. Patient denies fever, chills, chest pain, shortness of breath, or cough. Denies headache, neck stiff ness, change in vision, syncope, or near syncope. Denies nausea, vomiting, abdominal pain, diarrhea, constipation, or dysuria. Has not noted any blood in urine or stool. Patient has been eating and drinking appropriately. Review of systems: As per history of present illness and below otherwise all systems reviewed and negative. Past medical history: As per history of present illness and as reviewed below otherwise noncontributory. Surgical history: As per history of present illness and as reviewed below otherwise noncontributory. Social history: See social history for further information Family history: As per history of present illness and as reviewed below otherwise noncontributory. Physical exam: General: Patient is alert, oriented, and in no acute distress. Patient sitting comfortably on exam table. Stable intermittently. HEENT: Atraumatic, normocephalic, pupils equal and reactive bilaterally, negative for conjunctival pallor or scleral icterus, mucous membranes moist, TMs normal bilaterally, throat clear, neck supple, nontender, trachea midline. No drooling or trismus noted. No meningeal signs. No hot potato voice noted. Lungs: Clear to auscultation, breath sounds equal bilaterally, chest nontender. Heart: S1S2, regular rate and rhythm without overt murmur Abdomen: Soft, nondistended, nontender. Negative for masses or he patosplenomegaly. Negative for costovertebral tenderness. Pelvis: Stable nontender. Genitourinary: Deferred. Rectal: Deferred. Skin: Intact, warm, dry. No lesions or rashes noted. Extremities: Nailbed of right great toe is erythematous is noted. Right great toe not tender to palpation. Nail of right great toe is thickened and flaky suggesting onychomycosis. Full ROM of the digit without pain or deficit. DP/PT pulses intact of the RLE with cap refill < 2 seconds. Otherwise, Atraumatic, negative for cords or calf pain. Neurovascular unremarkable. Neuro: Awake, alert, oriented. Cranial nerves II through XII unremarkable. Cerebellum unremarkable. Motor and sensory unremarkable throughout. Exam nonfocal. Notes: Dr. Carrington directly involved in patient care. Patient provided with 1 dose of Kef amadeo during visit and remainder of prescription was sent to pharmacy. Patient given strict follow-up instructions for podiatry. Voices understanding and is agreeable to plan of care. Denies any further questions or concerns at this time. The symptoms that were prompt return to the ED thoroughly discussed with patient. Diagnostics: None Therapeutics: Keflex x1 tab Prescription: Keflex Impression: Toe infection, right Plan: 1. Take medication as prescribed. You can alternate ibuprofen and Tylenol as checked for pain and discomfort. 2. I encouraged tight control of your sugars as this will help treat the infection. Follow-up with a stone finisher as discussed. The number has been provided above for you to call and establish an appointment time. 3. Return to the ED as needed and as discussed. Definitive disposition and diagnosis as appropriate pending reevaluation and review of above. - Related Data Allergies Allergy/AdvReac Type Severity Reaction Status Date / Time No Known Allergies Allergy Verified 08/06/20 21:17 Home Meds: Home Meds Empagliflozin [Jardiance] 5 mg PO DAILY 02/03/20 [History] glipiZIDE [Glucotrol XL] 5 mg PO BID 02/03/20 [History] lisinopriL [Lisinopril] 20 mg PO BEDTIME 02/03/20 [History] metFORMIN [Glucophage XR] 1,000 mg PO BID 02/03/20 [History] Clindamycin HCl 1 cap PO TID #30 capsule 07/12/20 [Rx] cephALEXin [Keflex] 500 mg PO Q8H 10 Days #30 cap 08/06/20 [Rx] Past Medical History HEENT History: Reports: None Cardiovascular History: Reports: Hypertension Respiratory History: Reports: None Gastrointestinal History: Reports: None Genitourinary History: Reports: None Musculoskeletal History: Reports: None Neurological History: Reports: None Psychiatric History: Reports: None Endocrine/Metabolic History: Reports: Diabetes, Type II Hematologic History: Reports: None Immunologic History: Reports: None Oncologic (Cancer) History: Reports: None Dermatologic History: Reports: None - Infectious Disease History Infectious Disease History: Reports: None - Past Surgical History Head Surgeries/Procedures: Reports: None Cardiovascular Surgical History: Reports: None Endocrine Surgical History: Reports: None Social & Family History - Family History Family Medical History: No Pertinent Family History - Caffeine Use Caffeine Use: Reports: None - Recreational Drug Use Recreational Drug Use: No Review of Systems - Review of Systems Review Of Systems: Comprehensive ROS is negative, except as noted in HPI. ED EXAM, GENERAL - Physical Exam Exam: See Below (see dictation) Course - Vital Signs Last Recorded V/S: Last Vital Signs Temp 96.8 F L 08/06/20 21:15 Pulse 65 08/06/20 22:08 Resp 18 08/06/20 22:08 BP 121/69 08/06/20 22:08 Pulse Ox 93 L 08/06/20 22:08 - Orders/Labs/Meds Meds: Medications Discontinued Medications Generic Name Dose Route Start Last Admin Trade Name Jd PRN Reason Stop Dose Admin Cephalexin 500 mg 08/06/20 21:57 08/06/20 22:07 Cephalexin 500 Mg Cap PO 08/06/20 21:58 500 mg ONETIME ONE Administration Departure - Departure Time of Disposition: 21:58 Disposition: Home, Self-Care 01 Clinical Impression: Toe infection - Discharge Information Prescriptions: cephALEXin [Keflex] 500 mg PO Q8H 10 Days #30 cap Instructions: Cellulitis, Adult Referrals: PCP,Not In Area [Primary Care Provider] - Forms: ED Department Discharge Additional Instructions: The following information is given to patients seen in the emergency department who are being discharged to home. This information is to outline your options for follow-up care. We provide all patients seen in our emergency department with a follow-up referral. The need for follow-up, as well as the timing and circumstances, are variable depending upon the specifics of your emergency department visit. If you don't have a primary care physician on staff, we will provide you with a referral. We always advise you to contact your personal physician following an emergency department visit to inform them of the circumstance of the visit and for follow-up with them and/or the need for any referrals to a consulting specialist. The emergency department will also refer you to a specialist when appropriate. This referral assures that you have the opportunity for follow-up care with a specialist. All of these measure are taken in an effort to provide you with optimal care, which includes your follow-up. Under all circumstances we always encourage you to contact your private physician who remains a resource for coordinating your care. When calling for follow-up care, please make the office aware that this follow-up is from your recent emergency room visit. If for any reason you are refused follow-up, please contact the [facility] Emergency Department at and asked to speak to the emergency department charge nurse. [facility] [address] [place] [id number] [facility] [address] [place] [id number] [facility], Dr. Rain, Podiatry [address] [place] [address] 1. Take medication as prescribed. You can alternate ibuprofen and Tylenol as checked for pain and discomfort. 2. I encouraged tight control of your sugars as this will help treat the infection. Follow-up with a stone finisher as discussed. The number has been provided above for you to call and establish an appointment time. 3. Return to the ED as needed and as discussed. Sepsis Event Note (ED) - Evaluation Sepsis Screening Result: No Definite Risk - Focused Exam Vital Signs: Vital Signs Temp Pulse Resp BP Pulse Ox 08/06/20 22:08 65 18 121/69 93 L 08/06/20 21:15 96.8 F L 67 16 145/81 H 93 L
[2020-08-06] MEDS ORDERED: Cephalexin 500 MG Cap PO ONE (21:57)
== END 2020-08-06 22:09 | disposition home or self-care (01) ==
LOC: MW.ED 21:02
DX: L08.9 Local infection of the skin and subcutaneous tissue, unspecified (principal); I10 Essential (primary) hypertension; E11.9 Type 2 diabetes mellitus without complications; E66.01 Morbid (severe) obesity due to excess calories; Z68.42 Body mass index [BMI] 45.0-49.9, adult; Z79.84 Long term (current) use of oral hypoglycemic drugs; Z79.899 Other long term (current) drug therapy
CPT/HCPCS: 99282; A9270

== ENCOUNTER 2022-01-06 20:36 | Emergency (ER) | payer BC | END 2022-01-06 22:38 | disposition left against medical advice (07) | LOC: MW.ED 20:36 | DX: Z53.21 Procedure and treatment not carried out due to patient leaving prior to being seen by health care provider (principal) ==

== ENCOUNTER 2022-08-12 15:40 | Emergency (ER) | payer BC ==
[2022-08-12] MEDS ORDERED: Sulfamethoxazole/Trimethoprim 800-160 MG Tab PO ONE (17:03)
[2022-08-12] MEDS ORDERED: Amoxicillin/Clavulanate K 875-125 MG Tab PO ONE (17:03)
[2022-08-12 17:20] LABS: CARBON DIOXIDE,CO2 27.1 mmol/L (21.0-32.0); POTASSIUM,K 4.4 mmol/L (3.5-5.1)
== END 2022-08-12 18:13 | disposition home or self-care (01) ==
LOC: MW.ED 15:40
DX: E11.628 Type 2 diabetes mellitus with other skin complications (principal); L08.9 Local infection of the skin and subcutaneous tissue, unspecified; I10 Essential (primary) hypertension; Z79.84 Long term (current) use of oral hypoglycemic drugs
CPT/HCPCS: 36415; 73660-26-T5; 73660-T5; 80048; 85025; 99283; A9270-GY

== ENCOUNTER 2022-08-17 10:35 | Observation (INO) | payer BC ==
[2022-08-17] MEDS ORDERED: Sodium Chloride 0.9% 1,000 ML IV ONE (11:06)
[2022-08-17] MEDS ORDERED: Clindamycin Phosphate in D5W 600 MG in Premix Bag 1 BAG IV ONE ×2 (11:18)
[2022-08-17 12:04] LABS: CARBON DIOXIDE,CO2 25.8 mmol/L (21.0-32.0); POTASSIUM,K 5.1 mmol/L (3.5-5.1)
[2022-08-17] MEDS ORDERED: Ondansetron 4 MG/2 ML SDV IVPUSH PRN (14:00)
[2022-08-17] MEDS ORDERED: Docusate Sodium 100 MG Cap PO PRN (14:00)
[2022-08-17] MEDS ORDERED: VANCOmycin 2 GM/400 ML 2 GM in Premix Bag 1 BAG IV ONE ×2 (14:00→15:00)
[2022-08-17] MEDS ORDERED: Sodium Chloride 0.9% 1,000 ML IV SCH (14:00)
[2022-08-17] MEDS ORDERED: Acetaminophen 325 MG Tab PO PRN (14:00)
[2022-08-17] MEDS ORDERED: Gadobenate Dimeglumine 529 MG/ML 20 ML SDV IVPUSH STA (14:31)
[2022-08-17 14:46] LABS: HEMOGLOBIN A1C 11.1 %
[2022-08-17] MEDS: Piperacillin/Tazobactam 3.375 GM in Sodium Chloride 0.9% 50 ML IV SCH ×2 (15:30→19:54)
[2022-08-17] MEDS ORDERED: Lisinopril 5 MG Tab PO SCH (21:00)
[2022-08-18 06:19] LABS: CARBON DIOXIDE,CO2 24.6 mmol/L (21.0-32.0); POTASSIUM,K 4.2 mmol/L (3.5-5.1)
[2022-08-18] MEDS ORDERED: Empagliflozin 10 MG Tab PO SCH (09:00)
[2022-08-18] MEDS: Piperacillin/Tazobactam 3.375 GM in Sodium Chloride 0.9% 50 ML IV SCH ×2 (09:01)
== END 2022-08-18 14:00 | disposition home or self-care (01) ==
LOC: MW.ED 10:35 → MW.MS 12:20
PROVIDERS: ADMIT Internal Medicine; ATTEND Internal Medicine
DX: E11.621 Type 2 diabetes mellitus with foot ulcer (principal); L97.519 Non-pressure chronic ulcer of other part of right foot with unspecified severity; T36.95XA Adverse effect of unspecified systemic antibiotic, initial encounter; E11.628 Type 2 diabetes mellitus with other skin complications; L03.115 Cellulitis of right lower limb; E11.65 Type 2 diabetes mellitus with hyperglycemia; I10 Essential (primary) hypertension; E66.9 Obesity, unspecified; Z79.84 Long term (current) use of oral hypoglycemic drugs; Z79.899 Other long term (current) drug therapy; Z68.36 Body mass index [BMI] 36.0-36.9, adult
CPT/HCPCS: 36415; 73660; 73720; 80048; 80053; 80202; 82947; 83036; 83605; 83735; 85025; 96365; 99285; A9270; A9577; J2543; J3370; J3490; J7030; J7050; 96367; 96375; 96376; G0378

== ENCOUNTER 2022-11-01 13:01 | Emergency (ER) | payer BC ==
[2022-11-01] MEDS ORDERED: Sodium Chloride 0.9% 2.5 ML Syringe FLUSH PRN (15:24)
[2022-11-01] MEDS ORDERED: Sodium Chloride 0.9% 10 ML Syringe FLUSH PRN (15:24)
[2022-11-01] MEDS ORDERED: Sodium Chloride 0.9% 1,000 ML IV STA (15:25)
[2022-11-01 15:32] LABS: HEMATOCRIT 50.9 % (38.0-50.0); HEMOGLOBIN 16.6 g/dL (13.0-17.0); MEAN CORPUSCULAR HGB CONC 32.6 g/dL (31.0-37.0); MEAN CORPUSCULAR VOLUME 82.9 fL (80.0-98.0); NRBC ABSOLUTE 0 K/uL; PLATELET COUNT,PLT 221 K/uL (150-400); RED BLOOD CELL COUNT 6.14 M/uL (4.50-5.90); WHITE BLOOD CELL COUNT,WBC 16.88 K/uL (4.0-11.0)
[2022-11-01 15:32] LABS: APPEARANCE,URINE CLEAR; BILIRUBIN,URINE NEGATIVE (NEGATIVE); COLOR,URINE YELLOW; GLUCOSE,URINE >=1000 mg/dL (NEGATIVE); KETONES,URINE NEGATIVE (NEGATIVE); LEUKOCYTE ESTERASE,URINE NEGATIVE (NEGATIVE); NITRITE,URINE NEGATIVE (NEGATIVE); OCCULT BLOOD,URINE NEGATIVE (NEGATIVE); PH,URINE 5.5 (5.0-8.0); PROTEIN,URINE NEGATIVE (NEGATIVE); UROBILINOGEN,URINE 0.2 EU/dL (<2.0)
[2022-11-01 16:02] LABS: A/G RATIO 0.8 (0.9-1.6); ALBUMIN 3.4 g/dL (3.4-5.0); BILIRUBIN TOTAL 0.6 mg/dL (0.2-1.0); CALCIUM 8.7 mg/dL (8.5-10.1); CARBON DIOXIDE,CO2 30.1 mmol/L (21.0-32.0); EST CRCL DRUG DOSING (CG) 88.13 mL/min; POTASSIUM,K 3.6 mmol/L (3.5-5.1); PROTEIN TOTAL,TP 7.8 g/dL (6.4-8.2)
[2022-11-01 16:13] LABS: LYMPHOCYTES PERCENT MAN 18 % (16.0-40.0); MONOCYTES ABSOLUTE MAN 0.5 (0.0-0.8); MONOCYTES PERCENT MAN 3 % (0.0-15.0); SEG NEUTROPHILS ABSOLUTE MAN 9.1 (1.4-5.7); SEG NEUTROPHILS PERCENT MAN 54 % (48.0-80.0)
[2022-11-01 16:14] LABS: EOSINOPHILS ABSOLUTE MAN 4.2 (0.0-0.7); EOSINOPHILS PERCENT MAN 25 % (0.0-7.0)
[2022-11-01] MEDS ORDERED: Iopamidol 755 MG/ML 500 ML Multipack Bottle IVPUSH ONE (17:05)
== END 2022-11-01 19:02 | disposition home or self-care (01) ==
LOC: MW.ED 13:01
DX: R10.31 Right lower quadrant pain (principal); R91.1 Solitary pulmonary nodule; I10 Essential (primary) hypertension; E11.9 Type 2 diabetes mellitus without complications; Z88.0 Allergy status to penicillin; Z88.1 Allergy status to other antibiotic agents; Z88.2 Allergy status to sulfonamides; Z79.84 Long term (current) use of oral hypoglycemic drugs; Z79.899 Other long term (current) drug therapy
CPT/HCPCS: 36415; 74177; 80053; 81003; 83690; 85025; 96360; 99284; J3490; J7030; Q9967

== ENCOUNTER 2023-04-18 16:49 | Emergency (ER) | payer BC | END 2023-04-18 17:35 | disposition home or self-care (01) | LOC: MW.ED 16:49 | DX: E11.69 Type 2 diabetes mellitus with other specified complication (principal); I10 Essential (primary) hypertension; Z79.84 Long term (current) use of oral hypoglycemic drugs; Z79.899 Other long term (current) drug therapy; Z88.0 Allergy status to penicillin; Z88.2 Allergy status to sulfonamides; Z88.1 Allergy status to other antibiotic agents | CPT/HCPCS: 99283 ==

== ENCOUNTER 2023-11-14 20:56 | Emergency (ER) | payer BC ==
[2023-11-14] MEDS: Cephalexin 500 MG Cap PO ONE (23:41)
== END 2023-11-14 23:49 | disposition home or self-care (01) ==
LOC: MW.ED 20:56
DX: L03.115 Cellulitis of right lower limb (principal); E11.9 Type 2 diabetes mellitus without complications; I10 Essential (primary) hypertension; Z79.84 Long term (current) use of oral hypoglycemic drugs; Z79.899 Other long term (current) drug therapy; Z75.8 Other problems related to medical facilities and other health care; Z88.1 Allergy status to other antibiotic agents; Z88.2 Allergy status to sulfonamides; Z88.8 Allergy status to other drugs, medicaments and biological substances
CPT/HCPCS: 93971; 99283; A9270

== ENCOUNTER 2023-11-18 20:42 | Emergency (ER) | payer BC ==
[2023-11-18] MEDS: Ondansetron 4 MG/2 ML SDV IVPUSH ONE (21:47)
[2023-11-18] MEDS: Morphine 4 MG/ML Syringe IVPUSH ONE (21:47)
[2023-11-18] MEDS: Sodium Chloride 0.9% 2.5 ML Syringe FLUSH PRN (21:48)
[2023-11-18] MEDS: Sodium Chloride 0.9% 1,000 ML IV ONE (21:48)
[2023-11-18] MEDS: Sodium Chloride 0.9% 10 ML Syringe FLUSH PRN (21:50)
[2023-11-18 22:13] LABS: BASOPHILS ABSOLUTE AUTO 0.05 K/uL (0.00-0.20); BASOPHILS PERCENT AUTO 0.4 % (0.0-1.0); EOSINOPHILS ABSOLUTE AUTO 0.29 K/uL (0.00-0.45); EOSINOPHILS PERCENT AUTO 2.3 % (0.0-6.0); HEMATOCRIT 47.5 % (42.0-52.0); HEMOGLOBIN 15.5 g/dL (14.0-18.0); IMMATURE GRAN ABSOLUTE AUTO 0.02 K/uL (0.00-0.05); IMMATURE GRAN PERCENT AUTO 0.2 % (0.0-0.4); LYMPHOCYTES ABSOLUTE AUTO 3.47 K/uL (1.00-4.80); LYMPHOCYTES PERCENT AUTO 27.8 % (24.0-44.0); MEAN CORPUSCULAR HEMOGLOBIN 27.2 pg (28.0-32.0); MEAN CORPUSCULAR HGB CONC 32.6 g/dL (32.0-36.0); MEAN CORPUSCULAR VOLUME 83.3 fL (83.0-99.0); MONOCYTES ABSOLUTE AUTO 1.17 K/uL (0.00-0.80); MONOCYTES PERCENT AUTO 9.4 % (0.0-8.0); NEUTROPHILS ABSOLUTE AUTO 7.46 K/uL (1.80-7.70); NEUTROPHILS PERCENT AUTO 59.9 % (41.0-71.0); PLATELET COUNT,PLT 212 K/uL (150-400); WHITE BLOOD CELL COUNT,WBC 12.46 K/uL (3.9-11.3)
[2023-11-18 22:14] LABS: APPEARANCE,URINE CLEAR; BILIRUBIN,URINE NEGATIVE (NEGATIVE); COLOR,URINE YELLOW; GLUCOSE,URINE >=1000 mg/dL (NEGATIVE); KETONES,URINE NEGATIVE (NEGATIVE); LEUKOCYTE ESTERASE,URINE NEGATIVE (NEGATIVE); NITRITE,URINE NEGATIVE (NEGATIVE); OCCULT BLOOD,URINE NEGATIVE (NEGATIVE); PH,URINE 6.5 (5.0-8.0); PROTEIN,URINE NEGATIVE (NEGATIVE); UROBILINOGEN,URINE 0.2 EU/dL (<2.0)
[2023-11-18 22:36] LABS: A/G RATIO 0.8 (0.9-1.6); ALBUMIN 3.7 g/dL (3.4-5.0); BILIRUBIN TOTAL 0.5 mg/dL (0.2-1.0); CALCIUM 9.1 mg/dL (8.5-10.1); CARBON DIOXIDE,CO2 29.2 mmol/L (21.0-32.0); CREATININE 1.1 mg/dL (0.8-1.3); EST CRCL DRUG DOSING (CG) 79.29 mL/min; POTASSIUM,K 4.1 mmol/L (3.5-5.1); PROTEIN TOTAL,TP 8.3 g/dL (6.4-8.2)
[2023-11-18 22:40] LABS: LACTIC ACID 1.7 mmol/L (0.4-2.0)
[2023-11-19] MEDS: Amoxicillin/Clavulanate K 875-125 MG Tab PO ONE (00:33)
[2023-11-19] MEDS: Doxycycline 100 MG Cap PO ONE (00:35)
== END 2023-11-19 00:37 | disposition home or self-care (01) ==
LOC: MW.ED 20:42
DX: L03.115 Cellulitis of right lower limb (principal); E11.9 Type 2 diabetes mellitus without complications; I10 Essential (primary) hypertension; Z79.2 Long term (current) use of antibiotics; Z79.899 Other long term (current) drug therapy; Z79.82 Long term (current) use of aspirin; Z75.8 Other problems related to medical facilities and other health care
CPT/HCPCS: 36415; 73590; 80053; 81003; 83605; 85025; 87040; 96361; 96374; 96375; 99284; A9270; J2270; J2405; J3490; J7030